=== PATIENT | male | born 2000 | race American Indian/Alaskan Native ===

== ENCOUNTER 2022-07-05 03:42 | Emergency (ER) | payer BC, MEDICAID ==
[2022-07-05 03:46] VITALS: BP 145/79
[2022-07-05 05:16] LABS: Color,Urine Yellow (Yellow)
[2022-07-05] MEDS ORDERED: LIDOCAINE-MPF (1%) 10 MG/1 ML VIAL 5 ML INFILTRATI ONE (11:14)
--- NOTE | 2022-07-05 11:14 | Emergency Department Report ---
ED Dysuria HPI - HPI Chief Complaint: Urogenital-Male Stated Complaint: BURN WHEN PEEING Time Seen by Provider: 07/05/22 11:04 Duration: 2 Days Location of Discomfort: Urethra (dysuria) Severity: Mild Symptoms: Dysuria: Yes, Frequency: No, Suprapubic Pain: No, Flank Pain: No, Fever: No, Hematuria: No, Abdominal Pain: No, Previous UTI's: No Other History: 22 yo comes in with tingling with urination. no d/c. sex with one female. no hx std. no flank pain. no abd pain. no n/v. no fever or chills. ambulatory and in nad ED Review of Systems ROS: Stated complaint: BURN WHEN PEEING Other details as noted in HPI Comment: All other systems reviewed and negative ED Past Medical Hx - Past Medical History Previous Medical History?: No - Surgical History Past Surgical History?: No - Family History Family history: no significant - Social History Smoking Status: Never Smoker Substance Use Type: None - Medications Home Medications: Home Medications Medication Instructions Recorded Confirmed Last Taken Type Mupirocin [Bactroban 2% Oint] 1 applic TP TID #1 tube 09/02/13 Unknown Rx Amoxicillin [Trimox CAP] 500 mg PO Q8H #30 capsule 02/17/16 Unknown Rx Ibuprofen [Motrin] 600 mg PO Q8H PRN #20 tablet 02/17/16 Unknown Rx Azithromycin [Zithromax Z-MARII] 1,000 mg PO ONCE #4 07/05/22 Unknown Rx metroNIDAZOLE [Flagyl] 500 mg PO ONCE #4 tab 07/05/22 Unknown Rx Dysuria Exam - Exam General: Vital signs noted. No distress. Alert and acting appropriately. Exam: Yes Moist Mucous Membranes, No CVA Tenderness, No Abdominal Tenderness, No Rigidity or Guarding Labs: Lab Results 07/05/22 Range/Units Unknown Urine Color Yellow (Yellow) Urine Turbidity Clear (Clear) Specific [place] (Man) 1.020 (1.003-1.030) Ur Protein (Man) Negative (Negative) mg/dL Ur Ketones (Man) Negative (Negative) Urine Bilirubin (Man) Negative (Negative) Urine WBC (Auto) 1.0 (0.0-6.0) /HPF Urine RBC (Auto) 1.0 (0.0-6.0) /HPF Urine RBC (Manual) Negative (Negative) ED Course Vital Signs 07/05/22 03:45 Temperature 98.2 F Pulse Rate 78 Respiratory 18 Rate Blood Pressure 145/79 O2 Sat by Pulse 97 Oximetry ED Medical Decision Making - Medical Decision Making Labs 07/05/22 Unknown Urine Color Yellow Urine Turbidity Clear Specific [place] (Man) 1.020 Ur Protein (Man) Negative Ur Ketones (Man) Negative Urine Bilirubin (Man) Negative Urine WBC (Auto) 1.0 Urine RBC (Auto) 1.0 Urine RBC (Manual) Negative Vital Signs 07/05/22 03:45 Temperature 98.2 F Pulse Rate 78 Respiratory 18 Rate Blood Pressure 145/79 O2 Sat by Pulse 97 Oximetry safe sex discussed vss ua noted empiric tx for std rocephin in ER and dc with meme and yl pt understands he needs to take all the meds today at one time given referral to [facility] dept. - Differential Diagnosis std Critical care attestation.: If time is entered above; I have spent that time in minutes in the direct care of this critically ill patient, excluding procedure time. ED Disposition Clinical Impression: Concern about STD in male without diagnosis Disposition: 01 HOME / SELF CARE / HOMELESS Is pt being admited?: No Does the pt Need Aspirin: No Condition: Stable Additional Instructions: safe sex meds as ordered today Prescriptions: metroNIDAZOLE [Flagyl] 500 mg PO ONCE #4 tab Azithromycin [Zithromax Z-MARII] 1,000 mg PO ONCE #4 Referrals: GEETA DIXON MD [Staff Physician] - 3-5 Days Time of Disposition: 11:28
== END 2022-07-05 12:28 | disposition home or self-care (01) ==
LOC: ED 03:42
DX: Z20.2 Contact with and (suspected) exposure to infections with a predominantly sexual mode of transmission (principal); R30.0 Dysuria
CPT/HCPCS: 81001; 96372; 99283; J0696; J3490